=== PATIENT | male | born 1960 ===

== ENCOUNTER 2017-08-27 16:05 | Outpatient (CLI) | payer BC ==
--- NOTE | 2017-08-27 21:26 | XRay Report ---
FINAL REPORT PROCEDURE: XR KNEE 4+V LT TECHNIQUE: Left knee, four views HISTORY: LEFT KNEE PAIN COMPARISON: No prior studies are available for comparison. FINDINGS: There are tricompartmental osteoarthritic changes, with joint space narrowing and osteophyte formation, particularly involving the medial and patellofemoral compartments. On the AP view there is cortical irregularity of the proximal tibia shaft, possibly related to prior trauma. IMPRESSION: Tricompartmental osteoarthritis. Cortical irregularity of the proximal tibia shaft may be related to remote trauma. If there has been more acute injury, views of the tibia could be obtained
== END 2017-08-27 16:06 | disposition home or self-care (01) ==
LOC: SPVIMAG 16:05
PROVIDERS: ATTEND Orthopaedic Surgery Sports Medicine
DX: M17.12 Unilateral primary osteoarthritis, left knee (principal)